=== PATIENT | female | born 1950 | race Caucasian/White ===

== ENCOUNTER 2017-04-09 09:47 | Observation (INO) | payer OTHER ==
[2017-04-09] VITALS (10 sets, daily range): BP systolic 91–162; BP diastolic 52–93; PULSE 75–93; RESP 16–22; TEMP 96.9–98.5; O2SAT 95–99
[~2017-04-09] VITALS: Ht 167.6 cm; Wt 87.1 kg
[~2017-04-09 09:47] MED LIST: ZOLP10TA3 PO
[2017-04-09] MEDS ORDERED: SODIUM CHLOR 0.9% 1000 ML INJ 1,000 ML IV SCH (09:57)
[2017-04-09] MEDS ORDERED: ALUMINUM/MAGNESIUM/SIMETH 30 ML CUP PO ONE (10:00)
[2017-04-09] MEDS ORDERED: PANTOPRAZOLE SODIUM 40 MG VIAL IVP ONE (10:00)
[2017-04-09] MEDS ORDERED: LIDOCAINE VISCOUS 2% SOLN 15 ML UDC PO ONE (10:00)
[2017-04-09] MEDS ORDERED: MORPHINE SULFATE 4 MG/ML INJ IV PUSH ONE (10:00)
--- NOTE | 2017-04-09 10:02 | PD ---
HPI Chief Complaint: abdominal pain Time Seen by Provider: 09:57 Travel History International Travel<30 days: No Contact w/Intl Traveler<30days: No Traveled to known affect area: No History of Present Illness HPI 66-year-old female here by private vehicle for evaluation of abdominal pain. Patient reports that the pain started when she woke up this morning and is epigastric, burning, severe, radiates to her back. Pain also radiates up into her chest. She denies history of cardiac disease. History of cholecystectomy. She has had a few episodes of clear emesis today. She also had a normal bowel movement this morning. PFSH Past Medical History Arthritis: Yes Autoimmune Disease: No Anxiety: Yes Depression: Yes Cancer: No Cardiovascular Problems: Yes (IRREGLAR HEART BEAT) Diabetes: No Diminished Hearing: No GERD: Yes Genitourinary: Yes (HX KIDNEY STONES) Immune Disorder: No Musculoskeletal: No Neurologic: No Psychiatric: No Reproductive: No Respiratory: No Immunizations Current: No Thyroid Disease: No Past Surgical History Abdominal Surgery: Yes (GALLBLADDER) Cholecystectomy: Yes Other Surgery: Yes Social History Alcohol Use: No Tobacco Use: No Substance Use: No Allergies-Medications (Allergen,Severity, Reaction): Coded Allergies: diatrizoate meglumine (Unverified Allergy, Intermediate, VOMITING, 04/09/17 ) gadobenic acid (Unverified Allergy, Intermediate, VOMITING, 04/09/17) gadodiamide (Unverified Allergy, Intermediate, VOMITING, 04/09/17) gadoteridol (Unverified Allergy, Intermediate, VOMITING, 04/09/17) iodixanol (Unverified Allergy, Intermediate, VOMITING, 04/09/17) iohexol (Unverified Allergy, Intermediate, VOMITING, 04/09/17) Reported Meds & Prescriptions Reported Meds & Active Scripts Active Reported Lortab (Hydrocodone-Acetaminophen) 10-325 Mg Tab 1 Tab PO TID PRN Lorazepam 0.5 Mg Tab 0.5-1 Mg PO HS PRN Amlodipine (Amlodipine Besylate) 2.5 Mg Tab 2.5 Mg PO BID Multiple Vitamin 1 Tab 1 Tab PO DAILY Glucosamine 1,500 Mg Tab 1,500 Mg PO BID Telmisartan 40 Mg Tab 40 Mg PO DAILY Review of Systems Except as stated in HPI: all other systems reviewed are Neg Physical Exam Narrative GENERAL: Well-developed, well-nourished, tearful SKIN: Focused skin assessment warm/dry. HEAD: Atraumatic. Normocephalic. EYES: Pupils equal and round. No scleral icterus. No injection or drainage. ENT: Mucous membranes pink and moist. NECK: Trachea midline. No JVD. CARDIOVASCULAR: Regular rate and rhythm. No murmur appreciated. RESPIRATORY: No accessory muscle use. Clear to auscultation. Breath sounds equal bilaterally. GASTROINTESTINAL: Abdomen soft, nondistended. Mild epigastric tenderness without peritoneal signs. Normal bowel sounds. Rest of abdomen is soft and nontender. MUSCULOSKELETAL: No obvious deformities. No clubbing. No cyanosis. No edema. NEUROLOGICAL: Awake and alert. No obvious cranial nerve deficits. Motor grossly within normal limits. Normal speech. PSYCHIATRIC: Appropriate mood and affect; insight and judgment normal. Data Data Last Documented VS Vital Signs Date Time Temp Pulse Resp B/P (MAP) Pulse Ox O2 Delivery O2 Flow Rate FiO2 04/09/17 12:00 80 16 114/69 (84) 97 Room Air 04/09/17 11:42 98.2 2.00 Orders Orders Complete Blood Count With Diff (04/09/17 09:57) Comprehensive Metabolic Panel (04/09/17 09:57) Lipase (04/09/17 09:57) Prothrombin Time / Inr (Pt) (04/09/17 09:57) Act Partial Throm Time (Ptt) (04/09/17 09:57) Urinalysis - C+S If Indicated (04/09/17 09:57) Iv Access Insert/Monitor (04/09/17 09:57) Ecg Monitoring (04/09/17 09:57) Oximetry (04/09/17 09:57) Morphine Inj (Morphine Inj) (04/09/17 10:00) Pantoprazole Inj (Protonix Inj) (04/09/17 10:00) Sodium Chlor 0.9% 1000 Ml Inj (Ns 1000 M (04/09/17 09:57) Sodium Chloride 0.9% Flush (Ns Flush) (04/09/17 10:00) Electrocardiogram (04/09/17 09:57) Al-Mag Hy-Si 40-40-4 Mg/Ml Liq (Mag-Al P (04/09/17 10:00) Lidocaine 2% Viscous (Xylocaine 2% Visco (04/09/17 10:00) Ct Abd/Pel W/O Iv Contrast (04/09/17 ) Ckmb (Isoenzyme) Profile (04/09/17 09:57) Troponin I (04/09/17 09:57) Hydromorphone Pf Inj (Dilaudid Pf Inj) (04/09/17 10:45) Ondansetron Inj (Zofran Inj) (04/09/17 12:00) Labs Laboratory Tests Test 04/09/17 10:20 04/09/17 11:55 White Blood Count 7.3 TH/MM3 Red Blood Count 4.09 MIL/MM3 Hemoglobin 13.0 GM/DL Hematocrit 38.1 % Mean Corpuscular Volume 93.2 FL Mean Corpuscular Hemoglobin 31.9 PG Mean Corpuscular Hemoglobin Concent 34.2 % Red Cell Distribution Width 12.6 % Platelet Count 219 TH/MM3 Mean Platelet Volume 8.3 FL Neutrophils (%) (Auto) 56.8 % Lymphocytes (%) (Auto) 27.1 % Monocytes (%) (Auto) 7.0 % Eosinophils (%) (Auto) 7.8 % Basophils (%) (Auto) 1.3 % Neutrophils # (Auto) 4.1 TH/MM3 Lymphocytes # (Auto) 2.0 TH/MM3 Monocytes # (Auto) 0.5 TH/MM3 Eosinophils # (Auto) 0.6 TH/MM3 Basophils # (Auto) 0.1 TH/MM3 CBC Comment DIFF FINAL Differential Comment Prothrombin Time 10.8 SEC Prothromb Time International Ratio 1.0 RATIO Activated Partial Thromboplast Time 25.2 SEC Blood Urea Nitrogen 15 MG/DL Creatinine 1.10 MG/DL Random Glucose 124 MG/DL Total Protein 7.6 GM/DL Albumin 3.7 GM/DL Calcium Level 9.2 MG/DL Alkaline Phosphatase 70 U/L Aspartate Amino Transf (AST/SGOT) 19 U/L Alanine Aminotransferase (ALT/SGPT) 21 U/L Total Bilirubin 0.7 MG/DL Sodium Level 140 MEQ/L Potassium Level 3.4 MEQ/L Chloride Level 105 MEQ/L Carbon Dioxide Level 29.1 MEQ/L Anion Gap 6 MEQ/L Estimat Glomerular Filtration Rate 50 ML/MIN Total Creatine Kinase 82 U/L Troponin I LESS THAN 0.02 NG/ML Lipase 144 U/L [facility] Medical Decision Making Medical Screen Exam Complete: Yes Emergency Medical Condition: Yes Medical Record Reviewed: Yes Interpretation(s) EKG: Sinus, rate 79, normal axis, normal intervals, nonspecific T-wave abnormality, no ST segment abnormalities. Differential Diagnosis Gastritis, peptic ulcer disease, pancreatitis, hepatobiliary disease, perforated viscus, ACS Narrative Course Vital signs show heart rate 86, blood pressure 119/71, pulse ox 97% on room air , oral temp of 98.1F. CBC is unremarkable. CMP is unremarkable. Lipase is 144. Cardiac enzymes are negative. UA: CT abdomen pelvis: CONCLUSION: 1. No acute inflammatory process. 2. Normal appendix. 3. No regional calculi or hydronephrosis. 4. Status post cholecystectomy. 5. Scattered diverticulosis without diverticulitis. Patient was made aware of all findings. She is still complaining of abdominal pain despite receiving a GI cocktail, IV morphine, and IV Dilaudid. She is also still crying because of her pain. Again she reports the pain as burning and radiating to her back. Because of her intractable abdominal pain, patient be admitted for overnight observation for further pain management. Case discussed with [facility] hospitalist Dr. Ureña who will admit the patient to her service. Diagnosis Primary Impression: Intractable abdominal pain Admitting Information Admitting Physician Requests: Observation Tapan Cazares MD Apr 09, 2017 10:02
[2017-04-09] MEDS: SODIUM CHLORIDE 0.9% FLUSH 10 ML FLUSH IV FLUSH PRN ×3 (10:26→12:22)
[2017-04-09 10:31] LABS: AUTOMATED NEUTROPHIL # 4.1 TH/MM3 (1.8-7.7); BASOPHIL # 0.1 TH/MM3 (0-0.2); BASOPHIL % 1.3 % (0.0-2.0); EOSINOPHIL # 0.6 TH/MM3 (0-0.4); EOSINOPHIL % 7.8 % (0.0-4.0); HEMATOCRIT 38.1 % (35.0-46.0); HEMO FLAGS DIFF FINAL; LYMPH % 27.1 % (9.0-44.0); MEAN CELL VOLUME 93.2 FL (80.0-100.0); MEAN CORPUSCULAR HEMOGLOBIN 31.9 PG (27.0-34.0); MEAN CORPUSCULAR HGB CONC 34.2 % (32.0-36.0); NEUT % 56.8 % (16.0-70.0); PLATELET COUNT 219 TH/MM3 (150-450); RED BLOOD COUNT 4.09 MIL/MM3 (4.00-5.30); RED CELL DISTRIBUTION WIDTH 12.6 % (11.6-17.2); WHITE BLOOD COUNT 7.3 TH/MM3 (4.0-11.0)
[2017-04-09 10:32] LABS: CHLORIDE 105 MEQ/L (98-107); POTASSIUM 3.4 MEQ/L (3.5-5.1); SODIUM (NA) 140 MEQ/L (136-145)
[2017-04-09 10:36] LABS: ANION GAP 6 MEQ/L (5-15); APTT (PATIENT) 25.2 SEC (24.3-30.1); BICARBONATE 29.1 MEQ/L (21.0-32.0); BLOOD UREA NITROGEN 15 MG/DL (7-18); PROTHROMBIN TIME - PATIENT 10.8 SEC (9.8-11.6)
[2017-04-09 10:39] LABS: ALT (GPT) 21 U/L (10-53); AST (GOT) 19 U/L (15-37); GLOMERULAR FILTRATION RATE 50 ML/MIN (>89)
[2017-04-09 10:41] LABS: TOTAL BILIRUBIN ADULT 0.7 MG/DL (0.2-1.0)
[2017-04-09 10:42] LABS: ALKALINE PHOSPHATASE 70 U/L (45-117)
[2017-04-09] MEDS ORDERED: HYDROmorphone HCL PF 1 MG/ML VIAL IV PUSH ONE (10:45)
[2017-04-09 10:48] LABS: CREATINE KINASE 82 U/L (26-192)
[2017-04-09] MEDS ORDERED: GLUC15009 PO (11:04)
[2017-04-09] MEDS ORDERED: AMLO2.5T PO (11:04)
[2017-04-09] MEDS ORDERED: HYDR-3535 PO (11:04)
[2017-04-09] MEDS ORDERED: MULTTAB67 PO (11:04)
[2017-04-09] MEDS ORDERED: TELM1TAB PO (11:04)
[2017-04-09] MEDS ORDERED: LORA-373 PO (11:04)
--- NOTE | 2017-04-09 11:40 | RADRPT ---
EXAM DATE/TIME: 04/09/2017 11:05 [place] COMPARISON: CT ABDOMEN & PELVIS W/O CONTRAST, August 09, 2015, 21:42. INDICATIONS : Mid upper abdominal pain with nausea and vomiting. ORAL CONTRAST: No oral contrast ingested. RADIATION DOSE: 17.85 CTDIvol (mGy) MEDICAL HISTORY : Gastroesophageal reflux disease. Renal calculi. SURGICAL HISTORY : Cholecystectomy. ENCOUNTER: Initial ACUITY: 1 day PAIN SCALE: 4/10 LOCATION: upper quadrant TECHNIQUE: Volumetric scanning of the abdomen and pelvis was performed. Using automated exposure control and ad justment of the mA and/or kV according to patient size, radiation dose was kept as low as reasonably achievable to obtain optimal diagnostic quality images. DICOM format image data is available electro nically for review and comparison. FINDINGS: LOWER LUNGS: The visualized lower lungs are clear. LIVER: Homogeneous density without lesion. There is no dilation of the biliary tree. Cholecystectomy clips. SPLEEN: Normal size without lesion. PANCREAS: Within normal limits. KIDNEYS: Normal in size and shape. There is no mass, stone, or hydronephrosis. ADRENAL GLANDS: Within normal limits. VASCULAR: There is no aortic aneurysm. BOWEL/MESENTERY: The stomach, small bowel, and colon demonstrate no acute abnormality. There is no free intraperitone al air or fluid. Scattered diverticula. ABDOMINAL WALL: Within normal limits. RETROPERITONEUM: There is no lymphadenopathy. BLADDER: No wall thickening or mass. REPRODUCTIVE: Within normal limits. INGUINAL: There is no lymphadenopathy or hernia. MUSCULOSKELETAL: Within normal limits for patient age. CONCLUSION: 1. No acute inflammatory process. 2. Normal appendix. 3. No regional calculi or hydronephrosis. 4. Status post cholecystectomy. 5. Scattered diverticulosis without diverticulitis. Darin Bell MD on April 09, 2017 at 11:30 Board Certified Radiologist. This report was verified electronically.
[2017-04-09] MEDS ORDERED: ONDANSETRON HCL 4 MG/2 ML VIAL IV PUSH ONE (12:00)
[2017-04-09 12:11] LABS: BLOOD, URINE NEG (NEG); GLUCOSE,URINE NEG (NEG); KETONE, URINE NEG (NEG); NITRITE,URINE NEG (NEG)
[2017-04-09 12:19] LABS: CALCIUM OXALATE CRYSTALS,URINE MOD /hpf; COMMENT (UR) CULT NOT INDICATED; CULTURE IF INDICATED CULT NOT INDICATED; METHOD OF COLLECTION VOIDED; MUCUS URINE FEW /lpf (OCC); SQUAMOUS EPITHELIAL CELL URINE 0-2 /hpf (0-5); URINE COLOR YELLOW (YELLW/STRAW); WBC, URINE 0-2 /hpf (0-5)
--- NOTE | 2017-04-09 13:45 | EKG ---
Date Performed: 04/09/2017 Time Performed: 10:06:16 PTAGE: 66 years EKG: Sinus rhythm NONSPECIFIC T-WAVE ABNORMALITY BORDERLINE ECG PREVIOUS TRACING : 10/21/2015 09.09 No significant change from previous tracing noted. DOCTOR: Mike Conroy Interpretating Date/Time 04/09/2017 13:44:20
[2017-04-09] MEDS ORDERED: ALPRAZolam 0.25 MG TAB PO PRN (14:30)
[2017-04-09] MEDS ORDERED: ONDANSETRON HCL 4 MG/2 ML VIAL IV PRN (14:30)
[2017-04-09] MEDS ORDERED: ACETAMINOPHEN 325 MG TAB PO PRN (14:30)
[2017-04-09] MEDS ORDERED: SODIUM CHLORIDE 0.9% FLUSH 10 ML FLUSH IV FLUSH PRN (14:30)
[2017-04-09] MEDS ORDERED: ACETAMINOPHEN/HYDROcodone 325 MG/5 MG TAB PO PRN (14:30)
[2017-04-09] MEDS ORDERED: ONDANSETRON HCL 4 MG/2 ML VIAL IV PUSH PRN (14:45)
[2017-04-09] MEDS: PANTOPRAZOLE SODIUM 40 MG VIAL IV PUSH SCH ×2 (15:00→21:00)
[2017-04-09] MEDS: ACETAMINOPHEN/HYDROcodone 325 MG/10 MG TAB PO PRN ×2 (15:02→22:58)
[2017-04-09] MEDS: NS + KCL 20 MEQ INJ 1,000 ML IV SCH ×2 (15:02→22:15)
[2017-04-09] MEDS ORDERED: HYDROmorphone HCL 2 MG TAB PO PRN (17:45)
[2017-04-09] MEDS ORDERED: HYDROmorphone HCL PF 1 MG/ML VIAL IV PUSH PRN (17:45)
[2017-04-09] MEDS ORDERED: ENOXAPARIN SODIUM 30 MG/0.3 ML SYRINGE SQ SCH (18:00)
--- NOTE | 2017-04-09 19:26 | MH ---
cc: STEPHEN LANDEROS DATE OF ADMISSION 04/09/2017 ADMISSION DIAGNOSIS Intractable abdominal pain. HISTORY OF PRESENT ILLNESS The patient is a 66-year-old female who states she woke up this morning and had pain from her mid abdomen to her back. The pain intensified and she developed nausea and some emesis so she presented to the emergency room. She denies any kind of heartburn. She did state that she had some diarrhea when she got to the emergency room. She describes the pain as an intense stabbing pain, not cramping in nature. She denies currently any heartburn. No change in her medications. No use of anti-inflammatories. She tells me her gallbladder is out. Apparently she has a history of pancreatitis in the past. She denies any alcohol consumption. She does not smoke. She does have chronic back pain but she tells me she does not use any antiinflammatories for this. PAST MEDICAL HISTORY Significant for: 1. Reflux. 2. Hepatitis C. 3. Kidney stones. 4. She has a history of pancreatitis. 5. Hypertension. PAST SURGICAL HISTORY Just the cholecystectomy. ALLERGIES INCLUDE CONTRAST MEDIUM. MEDICATIONS Include: 1. Amlodipine 2.5 twice a day. 2. Telmisartan 40 mg daily. 3. [place] 10/ that she gets from pain management for chronic back pain which she states she has been using twice a day. SOCIAL HISTORY Habits, she denies smoking. She does not consume alcohol. SOCIAL HISTORY She is currently retired. She used to work for [employer]. Her in the room with her. FAMILY HISTORY Noncontributory. REVIEW OF SYSTEMS No fevers or chills. No cough. No palpitations or shortness of breath. She says she is urinating well. PHYSICAL EXAMINATION VITAL SIGNS: On physical exam temperature is 96.9, pulse is 85, respirations 20, blood pressure is 144/93, pulse ox is 99% on room air. GENERAL: When I examine her she is sitting in the bed rocking back and forth secondary to her pain. HEENT: She is normocephalic, atraumatic. Extraocular muscles intact. LUNGS: Are clear to auscultation bilaterally. No rhonchi, rales or wheezes. CARDIOVASCULAR: Her heart is regular. She is not tachycardiac which is interesting considering the amount of pain she is in. ABDOMEN: Her abdomen is globose. She has got good bowel sounds in all four quadrants. She has got mid epigastric tenderness. She starts crying when I touch her midepigastrium. EXTREMITIES: Show no clubbing, cyanosis or edema. LABORATORY DATA Lab work that was done showed a white count of 7.3, hemoglobin 13, hematocrit of 38.1, platelet count of 219. Sodium was 140, potassium 3.4, BUN was 15, creatinine 1.1, GFR was 50. Troponin was less than 0.02. Lipase was 144. PT was 10.8. INR was 1.0. PTT was 25.2. Her UA showed some calcium crystals and some mucus but culture was not indicated. IMAGING CT scan showed no acute inflammatory process. Normal appendix. No calculi or hydronephrosis. Status post cholecystectomy. Scattered diverticulosis without diverticulitis. ASSESSMENT AND PLAN A 66-year-old female presenting to the emergency room with abdominal pain and nausea with some emesis. She did have some diarrhea while in the emergency room and has had no further diarrhea. I am not sure, this may have been from the contrast. At this point the emergency room doctor felt that he was unable to get her pain under control even though her lab work and her imaging studies were normal, so she has been admitted for her intractable abdominal pain. I have placed her on the Protonix should this be gastritis. We may possibly be dealing with a gastroenteritis maybe even a duodenal ulcer. I have asked GI to see her. In terms of her hypertension we will continue her home medications, the telmisartan and the amlodipine. She does have chronic back pain for which she is normally on Dec[place]. We will hold the Decatur as we will be giving her other pain medications while she is here. Further recommendations as the case develops. MD JENIFER King/ELISHA /5:56 PM /7:02 PM
[2017-04-09] MEDS ORDERED: NON-FORMULARY DRUG (Glucosamine 1,500 MG) PO SCH (21:00)
[2017-04-09] MEDS: HYDROmorphone HCL PF 1 MG/ML VIAL IV PRN (21:30)
[2017-04-09] MEDS: amLODIPine BESYLATE 5 MG TAB PO SCH (21:30)
[2017-04-09] MEDS: SODIUM CHLORIDE 0.9% FLUSH 10 ML FLUSH IV FLUSH SCH (21:31)
[2017-04-10] VITALS: BP 132/73; PULSE 81; RESP 18; TEMP 96.5; O2SAT 99
[2017-04-10] MEDS: HYDROmorphone HCL PF 1 MG/ML VIAL IV PRN ×2 (01:29→05:32)
[2017-04-10] MEDS: ACETAMINOPHEN/HYDROcodone 325 MG/10 MG TAB PO PRN (04:02)
[2017-04-10] MEDS: NS + KCL 20 MEQ INJ 1,000 ML IV SCH (05:34)
[2017-04-10 05:37] VITALS: BP 125/90; PULSE 71; RESP 20; TEMP 97.2; O2SAT 98
[2017-04-10 06:31] LABS: AUTOMATED NEUTROPHIL # 4.9 TH/MM3 (1.8-7.7); BASOPHIL % 0.6 % (0.0-2.0); EOSINOPHIL # 0.1 TH/MM3 (0-0.4); EOSINOPHIL % 1.7 % (0.0-4.0); HEMATOCRIT 34.6 % (35.0-46.0); HEMO FLAGS DIFF FINAL; LYMPHOCYTE # 1.7 TH/MM3 (1.0-4.8); MEAN CELL VOLUME 92.7 FL (80.0-100.0); MEAN CORPUSCULAR HEMOGLOBIN 31.1 PG (27.0-34.0); MEAN CORPUSCULAR HGB CONC 33.5 % (32.0-36.0); MONO % 8.5 % (0.0-8.0); NEUT % 66.2 % (16.0-70.0); PLATELET COUNT 203 TH/MM3 (150-450); RED BLOOD COUNT 3.73 MIL/MM3 (4.00-5.30); RED CELL DISTRIBUTION WIDTH 12.8 % (11.6-17.2); WHITE BLOOD COUNT 7.3 TH/MM3 (4.0-11.0)
[2017-04-10 06:40] LABS: CHLORIDE 112 MEQ/L (98-107); POTASSIUM 3.9 MEQ/L (3.5-5.1); SODIUM (NA) 145 MEQ/L (136-145)
[2017-04-10 07:06] LABS: ALKALINE PHOSPHATASE 53 U/L (45-117); ALT (GPT) 15 U/L (10-53); ANION GAP 8 MEQ/L (5-15); AST (GOT) 14 U/L (15-37); BLOOD UREA NITROGEN 10 MG/DL (7-18); GLOMERULAR FILTRATION RATE 64 ML/MIN (>89); TOTAL BILIRUBIN ADULT 0.7 MG/DL (0.2-1.0)
[2017-04-10] MEDS: SODIUM CHLORIDE 0.9% FLUSH 10 ML FLUSH IV FLUSH SCH (07:49)
[2017-04-10 08:00] VITALS: BP 128/78; PULSE 77; RESP 18; TEMP 97.7; O2SAT 100
--- NOTE | 2017-04-10 08:08 | MB ---
cc: SHANIKA HUA M.D., CARMEN A. M.D. DATE OF CONSULTATION: 04/10/2017 REASON FOR CONSULTATION Abdominal pain. HISTORY OF PRESENT ILLNESS Ms. Griffith is a very pleasant 66-year-old lady with multiple medical problems who came to the emergency room with complaints of abdominal pain mostly in the epigastrium radiating to her back. She also had nausea and vomiting. She was admitted overnight and placed on IV fluid. She is clinically doing better. No further episodes of nausea or vomiting. Pain is improved. She does have constipation. She denies any fever or chills, melena, hematemesis, hematochezia or NSAID use. She stated she had a similar episode a year ago and was seen by GI and recommended an endoscopy, but apparently at that time she was unable to have it done due to lack of insurance. She had the exact similar episode in the past due to pancreatitis. She had a cholecystectomy in 1996. She did have choledocholithiasis, had an ERCP for removal of the stones. According to her no stones were found. Post ERCP she had pancreatitis. She never had a colonoscopy. She is seeing Pain Management at this time for chronic back pain. Also reports that she had hepatitis C antibody positive but the viral load was undetectable and was told she does not need to have this treated. I do not have any blood work to support that. We are going to recheck this as an outpatient. PAST MEDICAL HISTORY 1. Chronic back pain. 2. High blood pressure. 3. Kidney stones. 4. Hepatitis C antibody positive. PAST SURGICAL HISTORY Cholecystectomy. ALLERGIES Per the chart. MEDICATIONS 1. Multivitamins. 2. Cozaar. 3. Dilaudid. 4. Norvasc. 5. Protonix. 6. Lovenox. REVIEW OF SYSTEMS CONSTITUTIONAL: She denies any fever or chills, weight loss or weight gain. HEENT: No alteration in baseline hearing or visual acuity. PULMONARY: Denies any chest pain or shortness of breath. GASTROINTESTINAL: As above. GENITOURINARY: Denies dysuria or hematuria. HEMATOLOGIC: Denies any history of anemia or bleeding disorder. SKIN: No alteration in baseline skin lesion. NEUROLOGIC: No history of TIA or CVA kind of symptoms. PHYSICAL EXAMINATION GENERAL: On clinical exam she is sitting comfortably in bed in no acute distress. VITAL SIGNS: Blood pressure 135/90, pulse 71, respiration 20, temperature 97.2. HEENT: PERRLA. NECK: No JVD. No lymphadenopathy. CHEST: Clear to auscultation and percussion. CARDIOVASCULAR: S1, S2. No murmur. ABDOMEN: Soft, obese. Bowel sounds are present, tenderness n epigastrium CERTIFIED NOVELL ADMINISTRATOR: Awake, alert, oriented x3. No focal signs identified. IMAGING CT abdomen essentially negative. LABORATORY CBC normal. CMP is also normal except for elevated glucose. IMPRESSION Abdominal pain, etiology unclear at this time, possible peptic ulcer disease, gastritis versus passed common bile duct stone. Clinically improved at this time. RECOMMENDATIONS Upper endoscopy was discussed with the patient. She would like to have this as an outpatient cannot be done today MRCP to rule out common bile duct stone. Advance diet and if tolerated can be discharged today we are going to arrange for a colonoscopy for screening purposes at the same time as the upper endoscopy. If symptoms persist and the patients unable to be discharged, we can arrange upper endoscopy as an inpatient tomorrow. The above was discussed with the patient and she is agreeable with the plan. Also as an outpatient will send hepatitis C viral load. I would like to thank Dr. Gomes for referring her to our office for consultation. Shanika Hua MD BSB/BT /7:36 AM /7:52 AM [facility]
[2017-04-10 08:45] VITALS: BP 128/78; PULSE 77; RESP 18; TEMP 97.7; O2SAT 100
[2017-04-10] MEDS ORDERED: MULTIVITAMIN TAB PO SCH (09:00)
[2017-04-10] MEDS ORDERED: LOSARTAN 50 MG TAB PO SCH (09:00)
[2017-04-10] MEDS ORDERED: PROPOFOL 200 MG/20 ML AMP IV ONE (09:53)
--- NOTE | 2017-04-10 09:55 | GIPROC ---
[facility] [address] [place] [address], [id number] EGD PROCEDURE REPORT EXAM DATE: 04/10/2017 PATIENT NAME: Anabela Griffith MR #: [id number] BIRTHDATE: 1950 ATTENDING: Chao Hernandez MD ORDER #: [id number] WIG COMBER: Meenakshi Mosqueda and Roney Garza STATUS: inpatient INDICATIONS: The patient is a 66 yr old female here for an EGD due to epigastric abdominal pain PROCEDURE PERFORMED: EGD w/ biopsy MEDICATIONS: None and Per Anesthesia. TOPICAL ANESTHETIC: none CONSENT: The patient understands the risks and benefits of the procedure and understands that these risks include, but are not limited to: sedation, allergic reaction, infection, perforation and/or bleeding. Alternative means of evaluation and treatment include, among others: physical exam, x-rays, and/or surgical intervention. The patient elects to proceed with this endoscopic procedure. medical equipment was checked for proper function. Hand hygiene and appropriate measures for infection prevention was taken. After the risks, benefits and alternatives of the procedure were thoroughly explained, Informed consent was verified, confirmed and timeout was successfully executed by the treatment team. The patient was anesthetized with topical anesthesia and the Loffles [id number] endoscope was introduced through the mouth and advanced to the second portion of the duodenum. Retroflexed views revealed no abnormalities The gastroscope was then slowly withdrawn and removed. Gastric ulcer in the antrum, Bx done. ADVERSE EVENTS: There were no complications. IMPRESSIONS: 1. Gastric ulcer in the antrum, Bx done 2. Retroflexed views revealed no abnormalities RECOMMENDATIONS: 1. Await biopsy results. Biopsy results will not be ready for 7-10 days. If you don't hear from us in two weeks, call our office for biopsy results. 2. Anti-reflux regimen 3. Avoid NSAIDS 4. Start PPI 5. Repeat EGD in 5 wks PATIENT CONDITION: stable DISPOSITION: Inpatient REPEAT EXAM: Return 5 weeks EGD Chao Hernandez MD eSigned: Chao Hernandez MD 04/10/2017 9:55 AM cc:
--- NOTE | 2017-04-10 11:09 | HHI.PR ---
Subjective Remarks Much less pain this am, had egd Objective Vitals Vital Signs Date Time Temp Pulse Resp B/P (MAP) Pulse Ox O2 Delivery O2 Flow Rate FiO2 04/10/17 08:45 97.7 77 18 128/78 (95) 100 04/10/17 08:00 97.7 77 18 128/78 (95) 100 04/10/17 05:37 97.2 71 20 125/90 (102) 98 04/10/17 00:00 96.5 81 18 132/73 (92) 99 04/09/17 20:15 98.2 87 20 162/90 (114) 98 04/09/17 19:02 18 04/09/17 17:01 20 04/09/17 16:00 96.9 85 20 144/93 (110) 99 04/09/17 15:45 87 16 116/61 (79) 97 04/09/17 14:00 16 04/09/17 13:15 75 16 121/79 (93) 97 Room Air 04/09/17 12:00 80 16 114/69 (84) 97 Room Air 04/09/17 12:00 16 04/09/17 11:42 98.2 93 18 91/52 (65) 95 Nasal Cannula 2.00 04/09/17 11:30 16 Result Diagram: 04/10/17 0540 04/10/17 0540 Objective Remarks Ambulating in room, much calmer cta rrr +bs, much less tender to palpation in midepigastric region no c/c/e A/P Problem List: (1) Intractable abdominal pain ICD Codes: R10.9 - Unspecified abdominal pain Status: Resolved Plan: pain currently controlled this am, egd done this am showed gastric ulcer , will progress diet repeat egd in 5 weeks, on ppi (2) Hypertension ICD Codes: I10 - Essential (primary) hypertension Status: Chronic Plan: has remained stable on home antihypertensive regimen. Assessment and Plan Progress diet, if tolerates will discharge on protonix with f/u EGD with GI in 5 weeks as per their recommendation. Problem Qualifiers (1) Hypertension: Qualified Codes: I10 - Essential (primary) hypertension Marivel Ureña MD Apr 10, 2017 11:09
[2017-04-10 12:00] VITALS: BP 121/65; PULSE 77; RESP 18; TEMP 98.2; O2SAT 96
[2017-04-10] MEDS: PANTOPRAZOLE SODIUM 40 MG VIAL IV PUSH SCH (12:18)
[2017-04-10] MEDS: amLODIPine BESYLATE 5 MG TAB PO SCH (12:18)
[2017-04-10] MEDS ORDERED: PROT40TA PO (13:06)
--- NOTE | 2017-04-10 13:10 | HHI.DS ---
Discharge Summary Admission Date Apr 09, 2017 at 12:10 Discharge Date: Apr 11, 2017 Admitting Diagnosis intractable abdominal pain (1) Gastric ulcer Diagnosis: Principal ICD Codes: K25.9 - Gastric ulcer, unspecified as acute or chronic, without hemorrhage or perforation (2) Intractable abdominal pain Diagnosis: Principal ICD Codes: R10.9 - Unspecified abdominal pain Status: Acute (3) Hypertension Diagnosis: Secondary ICD Codes: I10 - Essential (primary) hypertension Status: Chronic Consultants [facility] CBC/BMP: 04/10/17 0540 04/10/17 0540 Significant Findings Laboratory Tests Test 04/09/17 10:20 04/09/17 11:55 04/10/17 05:40 04/10/17 11:45 Eosinophils (%) (Auto) 7.8 % (0.0-4.0) Eosinophils # (Auto) 0.6 TH/MM3 (0-0.4) Creatinine 1.10 MG/DL (0.50-1.00) Random Glucose 124 MG/DL (74-106) Potassium Level 3.4 MEQ/L (3.5-5.1) Estimat Glomerular Filtration Rate 50 ML/MIN (>89) 64 ML/MIN (>89) Troponin I LESS THAN 0.02 NG/ML Urine Calcium Oxalate Crystals MOD /hpf (NONE) Urine Mucus FEW /lpf (OCC) Red Blood Count 3.73 MIL/MM3 (4.00-5.30) Hematocrit 34.6 % (35.0-46.0) Monocytes (%) (Auto) 8.5 % (0.0-8.0) Total Protein 6.2 GM/DL (6.4-8.2) Albumin 3.3 GM/DL (3.4-5.0) Aspartate Amino Transf (AST/SGOT) 14 U/L (15-37) Chloride Level 112 MEQ/L (98-107) PE at Discharge Ambulating in room, much calmer cta rrr +bs, much less tender to palpation in midepigastric region no c/c/e Pt Condition on Discharge: Good Discharge Disposition: Discharge Home Discharge Instructions DIET: Follow Instructions for: Heart Healthy Diet Activities you can perform: Regular-No Restrictions Marivel Ureña MD Apr 10, 2017 13:10
[2017-04-10 17:21] LABS: C. DIFF EPI 027 PRESUMPTIVE NEGATIVE (NEGATIVE)
== END 2017-04-10 13:47 | disposition home or self-care (01) ==
LOC: PHED 09:47 → PHEDA 12:10 → OBSVTOIN 14:25 → INTOOBSV 14:25 → PH3B 15:58
PROVIDERS: ADMIT Legal Medicine; ATTEND Legal Medicine
DX: K25.9 Gastric ulcer, unspecified as acute or chronic, without hemorrhage or perforation (principal); K80.50 Calculus of bile duct without cholangitis or cholecystitis without obstruction; K85.90 Acute pancreatitis without necrosis or infection, unspecified; K21.9 Gastro-esophageal reflux disease without esophagitis; I10 Essential (primary) hypertension; R94.31 Abnormal electrocardiogram [ECG] [EKG]; Z87.442 Personal history of urinary calculi
CPT/HCPCS: 00740; 43239; 74176; 80053; 81001; 82550; 83690; 83735; 84484; 85025; 85610; 85730; 87493; 88305; 88312; 93005; 96361; 96365; 96372; 96375; 96376; 99285; C9113; G0378; J1170; J1650; J2270; J2405; J3480; J7030